=== PATIENT | female | born 1945 | race Caucasian/White ===

== ENCOUNTER → 2023-04-07 06:51 | Outpatient (CLI) | payer MEDICARE, OTHER, SELFPAY ==
--- NOTE | 2023-04-07 06:56 | DI.ECHO.S_ITS ---
[facility] +---------+ : : [address] : [place] [address] : : : : [id number] : : : : Phone: [phone] +---------+ Echocardiogram Report + + :Name: CHACHA MEDRANO Study Date: 04/07/2023 Height: 63 in : :[facility] ReadingLocation: Weight: 130 lb : : Gender: Female BSA: 1.6 m2 : :: 1945 Age: 78 yrs BP: 133/84 mmHg: :Reason For Study: Atrial Fibrillation : :Ordering Physician: RAAD BENITEZ, : :LINDSAY Performed By: Jaqueline Vallejo : :Referring: LINDSAY MURPHY : + + Interpretation Summary The left ventricular cavity is small. Left ventricular systolic function is normal. The ejection fraction is estimated to be 60-65%. The right ventricle is normal size. There is a pacemaker lead in the right ventricle. Visually RV systolic function appears to be preserved. There is mild to moderate mitral regurgitation. There is mild aortic regurgitation. There is moderate tricuspid regurgitation. The right ventricular systolic pressure is estimated to be at least 28 mmHg based on an estimated right atrial pressure of 3 mm Hg. Procedure: A two-dimensional transthoracic echocardiogram with color flow and Doppler was performed. The study quality was technically adequate. There is no prior echocardiogram noted for this patient. The patient has a paced rhythm. Left Ventricle: The left ventricular cavity is small. Proximal septal thickening is noted. There is no echo evidence for significant left ventricular outflow tract obstruction. There is no thrombus. The ejection fraction is estimated to be 60-65%. Left ventricular systolic function is normal. Septal motion is consistent with conduction abnormality. Diastolic function could not be accurately assessed due to paced rhythm. Right Ventricle: The right ventricle is normal size. There is a pacemaker lead in the right ventricle. Visually RV systolic function appears to be preserved. Atria: The left atrium is mildly dilated. The right atrium is moderately dilated. There is no Doppler evidence for an interatrial shunt. Mitral Valve: The mitral valve leaflets appear mildly thickened, but open well. There is no mitral valve stenosis. There is mild to moderate mitral regurgitation. Aortic Valve: The aortic valve is trileaflet. The aortic valve opens well. There is mild aortic valve sclerosis. There is discrete nodular thickening of the left coronary cusp. There is no aortic valve stenosis. There is mild aortic regurgitation. Tricuspid Valve: The tricuspid valve is normal. There is no tricuspid stenosis. There is moderate tricuspid regurgitation. The right ventricular systolic pressure is estimated to be at least 28 mmHg based on an estimated right atrial pressure of 3 mm Hg. Pulmonic Valve: The pulmonic valve is not well seen, but is grossly normal. There is no pulmonic valvular stenosis. There is no pulmonic valvular regurgitation. Great Vessels: The aortic root is normal size. The ascending aorta is normal in size. The pulmonary artery is normal size. The IVC is of normal diameter and collapses greater than 50% with a sniff. This suggests a low right atrial pressure of 3 mm Hg. Pericardium/ Pleura There is no pericardial effusion. There is no pleural effusion. MMode/2D Measurements & Calculations LVIDd: 3.8 cm LVOT diam: 1.9 cm LVIDs: 2.8 cm Ao root diam: 2.9 cm FS: 26.3 % asc Aorta Diam: 3.2 cm IVSd: 1.2 cm LVPWd: 1.0 cm LV nogueira. diameter/BSA (cm/m^2): 2.4 LV sys. diameter/BSA (cm/m^2): 1.7 LA A2 area: 18.5 cm2 RA long axis: 6.4 cm LA A4 area: 17.6 cm2 RA area: 21.8 cm2 LA length (vol): 5.5 cm RA vol: 63.6 ml LA vol: 50.4 ml RA : 39.5 ml/m2 LA vol index: 31.3 ml/m2 RVD1 (basal): 3.7 cm LVLs ap4: 5.1 cm LVLd ap2: 5.3 cm TAPSE_phl: 1.6 cm LVLs ap2: 4.5 cm Doppler Measurements & Calculations Ao V2 max: 158.0 cm/sec LVOT Max James: 120.0 cm/sec Ao V2 mean: 112.0 cm/sec LV V1 max P.8 mmHg Ao max P.0 mmHg LV V1 VTI: 26.1 cm Ao mean P.0 mmHg ANDREY(I,D): 2.0 cm2 Ao V2 VTI: 37.1 cm ANDREY(V,D): 2.2 cm2 sev ratio: 0.70 ANDREY indexed to BSA (cm^2/m^2): 1.2 MV E max james: 131.0 cm/sec TR max james: 250.3 cm/sec MV A max james: 37.3 cm/sec TR max P.3 mmHg MV E/A: 3.5 PA V2 max: 94.3 cm/sec MV dec time: 0.18 sec PA V2 mean: 67.8 cm/sec PA mean P.0 mmHg PA pr(Accel): 42.1 mmHg SV(LVOT): 74.0 ml AV VR_phl: 0.76 ANDREY(VTI)/BSA_phl: 1.2 MV P1/2t-pr_phl: 52.0 msec Reading Physician:11:47 AM
== END ==
PROVIDERS: Referring Provider Internal Medicine; Visit Provider Internal Medicine
DX: I08.3 Combined rheumatic disorders of mitral, aortic and tricuspid valves (principal); I48.91 Unspecified atrial fibrillation
CPT/HCPCS: 93306